=== PATIENT | female | born 1950 | race Caucasian/White ===

== ENCOUNTER → 2016-04-09 | Outpatient (CLI) | payer OTHER ==
--- NOTE | 2016-04-09 16:02 | DX ---
Foot Minimum 3 Views Right History: Follow-up surgery. Check for healing. Findings: Comparison to 03/05/2016 and 02/13/2016. Internal fixation plate is in stable position extending from the proximal shaft of the first metatars al into the first cuneiform with 2 screws apparently crossing into the second cuneiform. These are in stable position. 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 No fracture lines are appreciated. No periosteal thickening is evident. Osteotomy is suspected distal head of the second metatarsal wit h small caliber screw remaining in place in good alignment. There has been surgical resection distal head of the second proximal phalanx. There is stable alignment of the second toe. There may be early bony bridging to the base of the second toe middle phalanx. There is possible bony erosion distal sha ft of the fourth toe proximal phalanx medial margin versus lucency related to increasing osteopenia. Clinical correlation recommended. Impression: 1. Stable alignment of internal fixation plate and screws from the proximal shaft of the first metata rsal to the first and second cuneiforms. 2. Progression of disuse osteopenia. 3. Stable alignment of the second toe with previous surgical resection distal head of the second toe proximal phalanx. 4. Erosion versus progression of osteopenia distal shaft right fourth toe proximal phalanx medial mar gin. Clinical correlation recommended. 5. Stable alignment of presumed osteotomy distal head of the second metatarsal.
== END ==
LOC: BMCIMAGING 14:44
PROVIDERS: ATTEND Podiatrist Foot & Ankle Surgery
DX: Z09 Encounter for follow-up examination after completed treatment for conditions other than malignant neoplasm (principal); Z98.1 Arthrodesis status; M85.871 Other specified disorders of bone density and structure, right ankle and foot

== ENCOUNTER → 2016-07-18 | Outpatient (CLI) | payer OTHER | LOC: BMCIMAGING 11:00 | PROVIDERS: ATTEND Physician Assistant | DX: M11.261 Other chondrocalcinosis, right knee (principal) ==

== ENCOUNTER → 2016-11-14 | Outpatient (CLI) | payer OTHER | LOC: FIMAGING 12:24 | PROVIDERS: ATTEND Family Medicine | DX: Z12.31 Encounter for screening mammogram for malignant neoplasm of breast (principal) | CPT/HCPCS: G0202 ==

== ENCOUNTER → 2018-05-31 | Outpatient (CLI) | payer OTHER | LOC: FIMAGING 11:56 | PROVIDERS: ATTEND Family Medicine | DX: Z12.31 Encounter for screening mammogram for malignant neoplasm of breast (principal); Z13.820 Encounter for screening for osteoporosis; M81.0 Age-related osteoporosis without current pathological fracture; Z78.0 Asymptomatic menopausal state ==